=== PATIENT | male | born 1970 | race Caucasian/White ===

== ENCOUNTER 2019-09-10 14:35 | Outpatient (RCR) | payer BC, SELFPAY ==
--- NOTE | 2019-09-14 10:44 | ONC FU_ITS ---
Dr. Tracey Patient Follow-Up Note Patient: Chencho Evans Unit #: [id number]: 1970 Dicatated By: Chencho Tracey M.D.Date of Visit:Sep 10, 2019 Onc Med Follow-up/Prog Note Chief Complaint: Essential thrombocythemia. History of Present Illness: This is a 49 year-old man with essential thrombocythemia. 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 He had presented with a gradually increasing platelet count. He underwent initial evaluation with a medical case manager in [place] in January of 2019. I did not have those records available, but the evaluation included bone marrow aspiration/biopsy, and he was determined to have essential thrombocythemia. He then had a second opinion evaluation through [facility], and the diagnosis of essential thrombocythemia was confirmed. The clonal analysis at revealed that he was JAK2 negative and BCR/abl negative. However, he was found to be positive for the CALR exon 9 mutation. He was briefly on treatment with hydroxyurea. He otherwise was just followed on aspirin prophylaxis. He had subsequently relocated this area. He was seen by Vanessa Marcus at [facility] on 05/06/2019. His CBC showed normal hemoglobin at 14.6 g with hematocrit 44.6%. The red cell indices were normal. The white blood cell count was 8900. The platelet count was moderately elevated at 968,000. I had seen him initially on 05/26/2019. By NCCN criteria, he was in the very low risk category, and he was recommended to just continue with aspirin prophylaxis. He has been in good general health. He also has anxiety/depression, which has been managed pretty well with fluoxetine. He has some mild psoriasis. He has had no other ongoing medical illnesses. He does have a history of alcohol abuse, but he quit drinking in 2017. He had smoked 1 pack of cigarettes daily for approximately 10 years. He quit smoking 10 years ago. He still chews tobacco, though. He is seen for a followup visit. He has been feeling good generally. Some days he does feel tired, but he still has normal activity. His ECOG score is 0. His appetite is good. He has no fever or night sweats. He has no shortness of breath, cough, or chest pain. He has no GI or complaints. He has some aches and pains. He has no focal neurologic symptoms. He has no abnormal bruising or bleeding. Medications: Aspirin 1 Tablet (of 81 mg) Oral daily, FLUoxetine HCl 1 Capsule (of 40 mg) Oral daily Allergies: No Known Allergies. Review of Systems: Constitutional - Some days he feels tired, but he still has normal activity. His appetite is good. His weight is up a little. No fever or night sweats. ECOG score is 0, ENMT - No sinus congestion/drainage. No mouth sores. No sore throat or difficulty swallowing, Hematologic/Lymphatic - No abnormal bruising or bleeding, Respiratory - No shortness of breath. No cough. No pleuritic pain or hemoptysis, Cardiovascular - No angina pain. No palpitations, Gastrointestinal - No nausea or vomiting. No heartburn or acid reflux. No diarrhea or constipation. No blood in the stool or black stools, Genitourinary (M) - No dysuria or hematuria. No urinary frequency. No urgency or incontinence, Musculoskeletal - He has some aches and pains, Integumentary - He has psoriasis, mainly on his elbows, Neurologic - No headache or dizziness. No numbness/paresthesias or other focal neurologic symptoms, Psychiatric - No anxiety or depression. No insomnia. Vital Signs: Performed on Sep 10, 2019 14:49 Height - 71.00 in (HIGH) Weight - 230.8 lbs (HIGH) BSA - 2.24 sq.m BMI - 32.19 (HIGH) Temperature - 97.6 F (LOW) Pulse - 60 /min Respiration - 20 /min BP - 139/82 mm(hg) O2 Sat - 98 % Pain - 0 Physical Examination: Constitutional - He looks good generally, Eyes - Sclerae nonicteric. Conjunctivae clear, ENMT - No lesions noted in the oral cavity, Hematologic/Lymphatic - No cervical, clavicular, or axillary adenopathy, Respiratory - Lungs are clear with good air movement bilaterally, Cardiovascular - Heart rhythm is regular. There is no murmur, gallop, or rub noted, Abdomen - Soft. Liver and spleen are not enlarged. There is no abdominal mass or ascites noted and there is no inguinal adenopathy, Extremities - No edema. Dorsalis pedis pulses are palpable bilaterally, Neurologic - No focal neurologic deficits noted. Lab/Imaging: Test performed on Sep 09, 2019 08:00 TSH 2.19 uU/mL Glucose 130 mg/dL BUN 20.0 mg/dL Creatinine 1.0 mg/dL Cr Clearance (Est) 127.16 mL/min Sodium 140.0 mmol/L Potassium 4.1 mmol/L Chloride 107.0 mmol/L CO2 24.0 mmol/L Calcium 9.1 mg/dL Protein, Total 7.0 g/dL Albumin 4.0 g/dL Globulin 3.0 g/dL Bilirubin, Total 0.3 mg/dL Alkaline Phosphatase 70.0 IU/L AST (SGOT) 57.0 IU/L ALT (SGPT) 55.0 IU/L WBC 8.4 10^9/L RBC 4.98 10^12/L HGB 14.3 g/dL HCT 44.2 % MCV 88.7 fl MCH 28.8 pg MCHC 32.5 g/dL RDW 14.0 % Platelet Count 117 10^9/L Lymphocytes 3.0 10^9/L Monocytes 0.3 10^9/L Manual Lymphocytes 35.3 % Manual Monocytes 3.9 % Impression: 1. Patient with essential thrombocythemia, CALR exon 9 mutation positive. He has had no associated thromboembolism. He is being managed with aspirin prophylaxis. 2. He has mild fatigue. His other medical illnesses include: 3. Anxiety/depression. 4. Mild psoriasis. 5. He has a history of alcohol abuse, inactive. Thus far during follow-up there has been some increase in his platelet count, but his clinical status has remained stable with no evidence of thromboembolism or other associated symptoms. Plan: He will continue his aspirin prophylaxis. He will be scheduled for repeat CBC in 3 months and for a follow-up visit in 6 months. Signed By: Chencho Tracey M.D. <<Signature on File>>
== END 2019-10-02 23:59 | disposition home or self-care (01) ==
LOC: ONCMED 14:35
PROVIDERS: Family Provider Internal Medicine; PCP Internal Medicine Medical Oncology; Visit Provider Internal Medicine Medical Oncology
DX: D69.3 Immune thrombocytopenic purpura (principal); F41.8 Other specified anxiety disorders; L40.9 Psoriasis, unspecified; R53.83 Other fatigue; F10.21 Alcohol dependence, in remission; F17.220 Nicotine dependence, chewing tobacco, uncomplicated; Z79.82 Long term (current) use of aspirin
CPT/HCPCS: 99214

== ENCOUNTER 2020-03-09 16:27 | Outpatient (CLI) | payer BC, SELFPAY ==
--- NOTE | 2020-03-09 19:48 | ONC FU_ITS ---
Dr. Tracey Patient Follow-Up Note Patient: Chencho Evans Unit #: [id number]: 1970 Dicatated By: Chencho Tracey M.D.Date of Visit:Mar 09, 2020 Onc Med Follow-up/Prog Note Chief Complaint: Essential thrombocythemia. History of Present Illness: This is a 49 year-old man with essential thrombocythemia. 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 He had presented with a gradually increasing platelet count. He underwent initial evaluation with a personal care aide in [place] in January of 2019. I did not have those records available, but the evaluation included bone marrow aspiration/biopsy, and he was determined to have essential thrombocythemia. He then had a second opinion evaluation through [facility], and the diagnosis of essential thrombocythemia was confirmed. The clonal analysis at revealed that he was JAK2 negative and BCR/abl negative. However, he was found to be positive for the CALR exon 9 mutation. He was briefly on treatment with hydroxyurea. He otherwise was just followed on aspirin prophylaxis. He had subsequently relocated this area. He was seen by Kamila Marcus at [facility] on 05/06/2019. His CBC showed normal hemoglobin at 14.6 g with hematocrit 44.6%. The red cell indices were normal. The white blood cell count was 8900. The platelet count was moderately elevated at 968,000. I had seen him initially on 05/26/2019. By NCCN criteria, he was in the very low risk category, and he was recommended to just continue with aspirin prophylaxis. He has been in good general health. He also has anxiety/depression, which has been managed pretty well with fluoxetine. He has some mild psoriasis. He has had no other ongoing medical illnesses. He does have a history of alcohol abuse, but he quit drinking in 2017. He had smoked 1 pack of cigarettes daily for approximately 10 years. He quit smoking more than 10 years ago. He still chews tobacco, though. He is seen for a followup visit. He has been feeling good generally. His energy is fair. He has normal activity. He has good appetite. He has no fever or night sweats. He has some allergy related sinus symptoms. He has no shortness of breath, cough, or chest pain. He has no GI or complaints. He has no significant joint or bone pain. He does not complain of headache or dizziness. He has no focal neurologic symptoms. Medications: Aspirin 1 Tablet (of 81 mg) Oral daily, FLUoxetine HCl 1 Capsule (of 40 mg) Oral daily Allergies: No Known Allergies. Review of Systems: Constitutional - He states his energy is fair. He feels good and he has normal activity. His appetite is good and his weight is down a few pounds. No fever, night sweats, or hot flashes. ECOG score is 0, ENMT - He has seasonal allergies. No mouth sores. No sore throat or difficulty swallowing, Hematologic/Lymphatic - No abnormal bruising or bleeding, Respiratory - No shortness of breath. No cough. No pleuritic pain or hemoptysis, Cardiovascular - No angina pain. No palpitations, Gastrointestinal - No nausea or vomiting. No heartburn or acid reflux. No diarrhea or constipation. No blood in the stool or black stools, Genitourinary (M) - No dysuria or hematuria. No urinary frequency. No urgency or incontinence, Musculoskeletal - No joint or bone pain, Integumentary - No skin complications, Neurologic - No headache or dizziness. No numbness or tingling. No other focal neurologic symptoms, Psychiatric - No anxiety or depression. No insomnia. Vital Signs: Performed on Mar 09, 2020 16:37 Height - 71.00 in Weight - 228.6 lbs (LOW) BSA - 2.23 sq.m BMI - 31.88 (HIGH) Temperature - 97.7 F (LOW) Pulse - 68 /min Respiration - 18 /min BP - 148/83 mm(hg) (HIGH) O2 Sat - 96 % Pain - 0 Physical Examination: Constitutional - He looks good generally, Eyes - Sclerae nonicteric. Conjunctivae clear, ENMT - No lesions noted in the oral cavity, Hematologic/Lymphatic - No cervical, clavicular, or axillary adenopathy, Respiratory - Lungs are clear with good air movement bilaterally, Cardiovascular - Heart rhythm is regular. There is no murmur, gallop, or rub noted, Abdomen - Soft. Liver and spleen are not enlarged. There is no abdominal mass or ascites noted and there is no inguinal adenopathy, Extremities - No edema, Neurologic - No focal neurologic deficits noted. Lab/Imaging: Test performed on Feb 04, 2020 12:34 Glucose 112.0 mg/dL BUN 16.0 mg/dL Creatinine 1.0 mg/dL Cr Clearance (Est) 132.32 mL/min Sodium 138.0 mmol/L Potassium 4.5 mmol/L Chloride 105.0 mmol/L CO2 28.0 mmol/L Calcium 9.0 mg/dL Protein, Total 6.9 g/dL Albumin 3.9 g/dL Globulin 3.0 g/dL Bilirubin, Total 0.3 mg/dL Alkaline Phosphatase 61.0 IU/L AST (SGOT) 45.0 IU/L ALT (SGPT) 59.0 IU/L WBC 7.8 10^9/L RBC 4.99 10^12/L HGB 13.8 g/dL HCT 44.7 % MCV 89.4 fl MCH 27.6 pg MCHC 30.9 g/dL RDW 14.6 % Platelet Count 1130.0 10^9/L Neutrophils (Gran) 4.7 10^9/L Lymphocytes 2.8 10^9/L Monocytes 0.2 10^9/L Manual Lymphocytes 36.1 % Manual Monocytes 3.1 % Impression: 1. Patient with essential thrombocythemia, CALR exon 9 mutation positive. He has had no associated thromboembolism. He is being managed with aspirin prophylaxis. 2. He has mild fatigue. His other medical illnesses include: 3. Anxiety/depression. 4. Mild psoriasis. 5. He has a history of alcohol abuse, inactive. Thus far during follow-up there has been a gradual further increase in his platelet count, but his clinical status has remained stable with no evidence of thromboembolism or other associated symptoms. Plan: He will continue on observation/aspirin prophylaxis. He will be scheduled for a follow-up visit in 6 months. Signed By: Chencho Tracey M.D. <<Signature on File>>
== END 2020-03-09 16:28 | disposition home or self-care (01) ==
LOC: ONCMED 16:30
PROVIDERS: PCP Internal Medicine; Visit Provider Internal Medicine Medical Oncology
DX: D47.3 Essential (hemorrhagic) thrombocythemia (principal); R53.83 Other fatigue; F41.8 Other specified anxiety disorders; F10.11 Alcohol abuse, in remission; L40.9 Psoriasis, unspecified
CPT/HCPCS: G0463

== ENCOUNTER → 2020-08-31 14:42 | Outpatient (BNVA) | payer BC, SELFPAY | PROVIDERS: PCP Internal Medicine; Visit Provider Nurse Practitioner Family | DX: Z20.828 Contact with and (suspected) exposure to other viral communicable diseases (principal) | CPT/HCPCS: 87635 ==

== ENCOUNTER 2020-09-14 14:31 | Outpatient (CLI) | payer BC, SELFPAY ==
--- NOTE | 2020-09-18 08:20 | ONC FU_ITS ---
Dr. Tracey Patient Follow-Up Note Patient: Chencho Evans Unit #: [id number]: 1970 Dicatated By: Chencho Tracey M.D.Date of Visit:Sep 14, 2020 Onc Med Follow-up/Prog Note Chief Complaint: Essential thrombocythemia. History of Present Illness: This is a 50 year-old man with essential thrombocythemia. 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 He had presented with a gradually increasing platelet count. He underwent initial evaluation with a resaw operator in [place] in January of 2019. I did not have those records available, but the evaluation included bone marrow aspiration/biopsy, and he was determined to have essential thrombocythemia. He then had a second opinion evaluation through [facility], and the diagnosis of essential thrombocythemia was confirmed. The clonal analysis at revealed that he was JAK2 negative and BCR/abl negative. However, he was found to be positive for the CALR exon 9 mutation. He was briefly on treatment with hydroxyurea. He otherwise was just followed on aspirin prophylaxis. He had subsequently relocated this area. He was seen by Kamila Marcus at [facility] on 05/06/2019. His CBC showed normal hemoglobin at 14.6 g with hematocrit 44.6%. The red cell indices were normal. The white blood cell count was 8900. The platelet count was moderately elevated at 968,000. I had seen him initially on 05/26/2019. By NCCN criteria, he was in the very low risk category, and he was recommended to just continue with aspirin prophylaxis. He has been in good general health. He has anxiety/depression, which has been managed pretty well with fluoxetine. He has some mild psoriasis. He has had no other ongoing medical illnesses. He does have a history of alcohol abuse, but he quit drinking in 2017. He had smoked 1 pack of cigarettes daily for approximately 10 years. He quit smoking more than 10 years ago. He still chews tobacco, though. He is seen for a followup visit. He has been feeling pretty good generally. He was diagnosed with COVID-19 virus infection on 01 September. He had only minor symptoms with it, and he has recovered. Other than being fatigued with the COVID-19 illness he has had good energy and activity tolerance. His ECOG score is 0. Appetite also has decreased. He has not had fever. He has had a little bit of sweating. His cough is better now. He does not complain of shortness of breath or chest pain. He has had a little nausea. He has no other GI or complaints. He has no significant joint or bone pain. He does not complain of headache or dizziness. He has no focal neurologic symptoms. He has not had any excessive bruising on the aspirin. Medications: Aspirin 1 Tablet (of 81 mg) Oral daily, FLUoxetine HCl 1 Capsule (of 40 mg) Oral daily Allergies: No Known Allergies. Vital Signs: Performed on Sep 14, 2020 14:47 Height - 71.00 in Weight - 229.8 lbs (HIGH) BSA - 2.24 sq.m BMI - 32.05 (HIGH) Temperature - 97.9 F (LOW) Pulse - 63 /min Respiration - 16 /min BP - 144/89 mm(hg) (HIGH) O2 Sat - 97 % Pain - 0 Physical Examination: Constitutional - He looks good generally, Eyes - Sclerae nonicteric. Conjunctivae clear, ENMT - No lesions noted in the oral cavity, Hematologic/Lymphatic - No cervical, clavicular, or axillary adenopathy, Respiratory - Lungs are clear with good air movement bilaterally, Cardiovascular - Heart rhythm is regular. There is no murmur, gallop, or rub noted, Abdomen - Soft. Liver and spleen are not enlarged. There is no abdominal mass or ascites noted and there is no inguinal adenopathy, Extremities - No edema, Integumentary - There are patches of psoriasis on both arms, Neurologic - No focal neurologic deficits noted. Lab/Imaging: Test performed on Sep 13, 2020 03:58 Glucose 109.0 mg/dL LDH, Total 234 IU/L BUN 19.0 mg/dL Creatinine 1.0 mg/dL Cr Clearance (Est) 130.3000 mL/min Sodium 140.0 mmol/L Potassium 4.5 mmol/L Chloride 105.0 mmol/L CO2 30.0 mmol/L Calcium 9.1 mg/dL Protein, Total 7.2 g/dL Albumin 4.1 g/dL Globulin 3.1 g/dL Bilirubin, Total 0.4 mg/dL Alkaline Phosphatase 66.0 IU/L AST (SGOT) 35.0 IU/L ALT (SGPT) 64.0 IU/L Hemoglobin A1C 5.5 % WBC 8.3 10^9/L RBC 4.87 10^12/L HGB 14.1 g/dL HCT 43.6 % MCV 89.5 fl MCH 29.1 pg MCHC 32.5 g/dL RDW 15.1 % Platelet Count 782.0 10^9/L Neutrophils (Gran) 4.8 10^9/L Lymphocytes 2.8 10^9/L Monocytes 0.5 10^9/L Manual Lymphocytes 33.5 % Manual Monocytes 5.8 % Historic Problem List: 1. Essential thrombocythemia, CALR exon 9 mutation positive. He has had no associated thromboembolism. He is being managed with aspirin prophylaxis. 2. Anxiety/depression. 3. Mild psoriasis. 4. He has a history of alcohol abuse, inactive. 5. He was diagnosed with COVID-19 virus infection on 09/01/2020. He has had uneventful recovery. Problems Addressed with this Encounter and Plan: 1. Essential thrombocythemia, CALR exon 9 mutation positive. He has had no associated thromboembolism, and he was determined to be in a very low risk category by NCCN criteria. As such, he has been managed with aspirin prophylaxis. During follow-up there was some increase in his platelet count, but on the current study it has come back down. Overall, he has been doing well clinically, and he will just continue the aspirin prophylaxis. I will see him again in 6 months. 2. He has mild psoriasis, which has flared up a bit. He indicates he would like to see a flight operations specialist, and I will get that scheduled for him. Signed By: Chencho Tracey M.D. <<Signature on File>>
== END 2020-09-14 14:32 | disposition home or self-care (01) ==
PROVIDERS: PCP Internal Medicine; Visit Provider Internal Medicine Medical Oncology
DX: D47.3 Essential (hemorrhagic) thrombocythemia (principal); F41.9 Anxiety disorder, unspecified; F32.9 Major depressive disorder, single episode, unspecified; L40.9 Psoriasis, unspecified; F10.21 Alcohol dependence, in remission; Z86.16 Personal history of COVID-19
CPT/HCPCS: 99214

== ENCOUNTER 2020-10-06 14:29 | Emergency (ER) | payer BC, SELFPAY ==
[2020-10-06 14:35] VITALS: BP 151/76; PULSE 92; RESP 24; TEMP 36.9; O2SAT 96; BMI 34.8
--- NOTE | 2020-10-06 15:16 | CT_ITS ---
WS: [id number] CTA scan of the chest with IV contrast. Additional two-dimensional coronal and sagittal reconstructio n and MIP images was performed. 10/06/2020 Clinical Data: SOB, s/p COVID, thrombocythemia Comparison: None. DLP: 1796.[address] scans at [facility] use at least one of these dose optimization techniques: automat ed exposure control; mA and/or kV adjustment per patient size (includes targeted exams where dose is matched to clinical indication); or iterative reconstruction. Findings: The central pulmonary arteries and peripheral pulmonary arteries fill normally with no evidence of in traluminal filling defects. No pulmonary embolic disease is noted. No nodules, masses or effusions are seen. The heart size is normal with no pericardial effusion. No p neumonia or pneumothorax is seen. The pulmonary arterial system and thoracic aorta demonstrate no abn ormalities or dilatations. There is no axillary or significant mediastinal adenopathy. The thyroid gl and shows normal enhancement. The trachea bifurcates into the bronchi. The upper abdomen shows no abnormalities. The visualized liver, pancreas, gallbladder, adrenal glands and superior poles of the kidneys are not remarkable. Spleen is enlarged. The bones of the thoracic and upper lumbar spine are not remarkable. CT/CT angio chest PE protcl [id number] Impression: 1. Negative for pulmonary embolic disease. 2. Negative for acute cardiopulmonary disease. 3. Splenomegaly.
--- NOTE | 2020-10-06 15:16 | ECG_ITS ---
[facility] Test Date: 2020-10-06 Pat Name: Chencho Evans Department: Room: Gender: Male Cadd Drafter: : 1970 Requested By: Carole Christopher I Order Number: [id number] Erlin MD: Esha Keene M.D. Measurements Intervals [place] Rate: 89 P: 44 MD: 159 QRS: 4 QRSD: 96 T: 48 QT: 336 QTc: 409 Interpretive Statements SINUS RHYTHM POSSIBLE ANTERIOR MYOCARDIAL INFARCTION , OF INDETERMINATE AGE [30 ms Q WAVE IN V3/V4, OR R < 0.2 mV IN V4] No previous ECG available for comparison Electronically Signed On 10-06-2020 20:19:32 MANAGER STAFFING by Esha Keene M.D. [email or web address] [place] [facility].[id number] [email or web address]
[2020-10-06 16:04] VITALS: BP 141/81; PULSE 94; RESP 18; O2SAT 96
[2020-10-06 16:11] LABS: Basophils # 0.1 10^3/uL (0.0-0.1); Basophils % 1.2 %; Eosinophils # 0.4 10^3/uL (0.0-0.8); Eosinophils % 5.1 %; Hematocrit 37.7 % (42.0-52.0); Hemoglobin 11.8 g/dL (11.7-16.6); Mean Corpuscular HGB Conc 31.3 g/dL (30.0-36.0); Mean Corpuscular Hemoglobin 29.1 pg (28.0-34.0); Mean Corpuscular Volume 93.1 fL (80-94); Mean Platelet Volume 10.8 fL (7.4-10.4); Monocytes # 0.5 10^3/uL (0.2-0.9); Monocytes % 5.8 %; Neutrophils # 5.37 10^3/uL (1.8-7.7); Neutrophils % 62.5 %; Nucleated Red Blood Cells % 0 %; Platelet Count 773 10^3/cmm (130-400); Red Blood Count 4.05 10^6/uL (4.1-5.3); Red Cell Distribution Width 14.9 % (12.1-15.1); White Blood Count 8.6 10^3/uL (4.0-10.0)
[2020-10-06 16:20] LABS: INR 0.97 (0.8-1.2)
[2020-10-06 16:27] LABS: Troponin(5th) Baseline 8 ng/L (0-15)
[2020-10-06 16:30] VITALS: BP 141/81; PULSE 93; RESP 18; O2SAT 94
[2020-10-06 16:34] LABS: Alanine Aminotransferase 230 U/L (0-41); Albumin Level 3.5 g/dL (3.5-5.2); Alkaline Phosphatase 62 IU/L (40-130); Anion Gap 13.1 (5-19); Aspartate Amino Transferase 105 U/L (0-40); Blood Urea Nitrogen 17 mg/dL (6-20); Calcium 8.6 mg/dL (8.5-10.5); Carbon Dioxide 22 mmol/L (22-29); Chloride 106 mmol/L (98-107); Globulin 2.5 g/dL (1.3-4.6); Glomerular Filtration Rate 102.3 mL/min (90-130); Glucose 197 mg/dL (65-115); NT Pro B Type Natriuretic Pept 154 pg/mL (0-125); Osmolality Calculated 291 mOsm/kg (285-295); Potassium 4.1 mmol/L (3.5-5.1); Sodium 137 mmol/L (136-145); Total Bilirubin 0.2 mg/dL (0.15-1.2)
[2020-10-06] MEDS: iohexol 350 mg/mL 100 mL Btl IV ×3 (16:43→16:44)
[2020-10-06 17:00] VITALS: BP 165/86; PULSE 100; RESP 18; O2SAT 95
--- NOTE | 2020-10-06 17:21 | W.ED.SOB ---
HPI - SOB/Dyspnea General: Chief Complaint: Shortness of Breath/Dyspnea Stated Complaint: called over/SOB, low o2 Time Seen by Provider: 10/06/20 15:05 Source: patient, family and other (his PCP, Dr. Govea) Mode of arrival: ambulatory Limitations: no limitations History of Present Illness: HPI Narrative: This is a 50-year-old male who was sent to the emergency department by his primary care provider due to shortness of breath. On 31 August 2020 the patient was diagnosed with COVID-19 and has done relatively well with it. He never needed hospital admission. However he had an acute psychotic/manic event and needed to be evaluated at the emergency department at [facility] in [place] [facility] in [place]. He has since got better and is almost back to himself, however he still complains of significant shortness of breath with activity. At his PCPs office he noticed that he was panting a little bit and his oxygen saturation was 93%, according to his PCP his baseline is around 97%. He has idiopathic thrombocythemia so he is at increased risk for DVTs and PE and since Covid is also a prothrombotic event his primary care provider was concerned about a PE and wanted him evaluated for this. He has also had about a 20 pound weight gain which his believes is from the psychiatric medications that he is on. MD elicited complaint: shortness of breath Onset (ago): week(s) (6) Context: recent illness Timing: constant Severity: moderate Exacerbating factors: exertion Relieving factors: nothing Associated symptoms: Deny abdominal pain, chest congestion, chest pain, cough, diaphoresis, dizziness, extremity pain, fever(s), hemoptysis, lightheadedness, myalgias, nausea, orthopnea, palpitations, paresthesias, polydipsia, polyuria, rash, sense of impending doom, syncope or vomiting Treatment prior to arrival: none Review of Systems General: Reports: 10 or more systems reviewed and unremarkable except in HPI and below Const: Denies: diaphoresis Eyes: Denies: change in vision or blurry vision ENMT: Denies: throat pain, enlarged tonsils, odynophagia, hoarseness, mouth pain or swelling of lips/tongue Card: Denies: chest pain, palpitations, lightheadedness, syncope or orthopnea Resp: Denies: hemoptysis or chest congestion GI: Denies: abdominal pain, nausea or vomiting : Denies: flank pain, dysuria, urinary frequency, urinary urgency or urinary hesitancy Musc: Denies: extremity pain Skin/Breast: Denies: rash, pruritus or erythema Neuro: Denies: dizziness Endo: Denies: polyuria or polydipsia Physical Exam Const: COMMON NORMALS: no acute distress, average body habitus, patient oriented x3, no limitations, healthy appearing, alert and well nourished HENMT: COMMON NORMALS: normocephalic, atraumatic and moist oral mucous membranes HEAD & SCALP: normocephalic and atraumatic Neck/C-Spine: COMMON NORMALS: no meningeal signs and no JVD Resp: COMMON NORMALS: normal respiratory effort, No retractions, No use of accessory muscles, clear to auscultation bilaterally and percussion normal AUSCULTATION: clear to auscultation bilaterally PERCUSSION: percussion normal Cardio: COMMON NORMALS: no JVD, regular rate, regular rhythm, S1 normal heart sound present, S2 normal heart sound present, No gallops present (Cardio), No clicks present (Cardio), No murmurs present (Cardio), No rub (Cardio) and Peripheral pulses 2+ throughout RATE: regular rate RHYTHM: regular rhythm HEART SOUNDS: S1 normal heart sound present and S2 normal heart sound present PERIPHERAL PULSES: Peripheral pulses 2+ throughout GI: COMMON NORMALS: Normal to inspection, nondistended, normoactive bowel sounds present, Soft to palpation, non-tender, No hepatosplenomegaly present, no masses and no bruits PALPATION: Yes Soft to palpation and Yes No hepatosplenomegaly present Extremity: COMMON NORMALS: normal to inspection, full ROM, capillary refill normal, no calf tenderness and no pedal edema Neuro: COMMON NORMALS: patient oriented x3 SENSORIUM/ORIENTATION: Yes alert MENINGEAL SIGNS: Yes no meningeal signs Course Reevaluation(s): Reevaluation #1: Discussed his lab and imaging findings with him. Negative for pulmonary embolism, high-sensitivity troponin negative. Heart score is low so he is at low risk for major adverse cardiac event in the next 6 weeks. 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 Explained that he needs to take it easy and not exert himself and to follow-up with his primary care provider. Patient and his voiced understanding and they are in agreement with the plan Time: 17:21 Vital Signs: Vital signs: Vital Signs Temperature 98.5 F 10/06/20 14:35 Pulse Rate 112 H 10/06/20 17:32 Respiratory Rate 18 10/06/20 17:32 Blood Pressure 165/86 10/06/20 17:32 Pulse Oximetry 97 10/06/20 17:32 MDM - SOB/Dyspnea MDM Narrative: Medical decision making narrative: Patient who was brought to the emergency department for evaluation for possible PE. He has thrombocythemia and recently had COVID-19 has been short of breath for about 6 weeks. 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 He is discharged home with no new orders. Medical Records: Attestation: I reviewed the patient's medical records. Lab Data: Attestation: I reviewed the patient's lab results. Labs: Lab Results 10/06/20 10/06/20 10/06/20 Range/Units 15:56 15:56 15:56 WBC 8.6 (4.0-10.0) 10^3/ uL RBC 4.05 L (4.1-5.3) 10^6/u L Hgb 11.8 (11.7-16.6) g/dL Hct 37.7 L (42.0-52.0) % MCV 93.1 (80-94) fL MCH 29.1 (28.0-34.0) pg MCHC 31.3 (30.0-36.0) g/dL RDW 14.9 (12.1-15.1) % Plt Count 773 H (130-400) 10^3/c mm MPV 10.8 H (7.4-10.4) fL Neut % (Auto) 62.5 % Lymph % (Auto) 23.0 % [place] % (Auto) 5.8 % Eos % (Auto) 5.1 % Baso % (Auto) 1.2 % Neut # (Auto) 5.37 (1.8-7.7) 10^3/u L Lymph # (Auto) 2.0 (0.8-4.8) 10^3/u L [place] # (Auto) 0.5 (0.2-0.9) 10^3/u L Eos # (Auto) 0.4 (0.0-0.8) 10^3/u L Baso # (Auto) 0.1 (0.0-0.1) 10^3/u L Nucleated RBC % (a uto) 0 % Nucleated RBCs # 0.0 /100WBC PT 13.10 (12.1-14.9) SECO NDS INR 0.97 (0.8-1.2) Sodium 137 (136-145) mmol/L Potassium 4.1 (3.5-5.1) mmol/L Chloride 106 (98-107) mmol/L Carbon Dioxide 22 (22-29) mmol/L Anion Gap 13.1 (5-19) BUN 17 (6-20) mg/dL Creatinine 0.8 (0.7-1.2) mg/dL GFR Calculation 102.3 (90-130) mL/min Glucose 197 H (65-115) mg/dL Calculated Osmolal ity 291 (285-295) mOsm/k g Calcium 8.6 (8.5-10.5) mg/dL Total Bilirubin 0.2 (0.15-1.2) mg/dL AST 105 H (0-40) U/L ALT 230 H (0-41) U/L Alkaline Phosphata se 62 (40-130) IU/L Troponin T Baselin e (0-15) ng/L NT-Pro-B Natriuret Pep 154 H (0-125) pg/mL Total Protein 6.0 L (6.6-8.7) g/dL Albumin 3.5 (3.5-5.2) g/dL Globulin 2.5 (1.3-4.6) g/dL 10/06/20 Range/Units 15:56 WBC (4.0-10.0) 10^3/ uL RBC (4.1-5.3) 10^6/u L Hgb (11.7-16.6) g/dL Hct (42.0-52.0) % MCV (80-94) fL MCH (28.0-34.0) pg MCHC (30.0-36.0) g/dL RDW (12.1-15.1) % Plt Count (130-400) 10^3/c mm MPV (7.4-10.4) fL Neut % (Auto) % Lymph % (Auto) % [place] % (Auto) % Eos % (Auto) % Baso % (Auto) % Neut # (Auto) (1.8-7.7) 10^3/u L Lymph # (Auto) (0.8-4.8) 10^3/u L [place] # (Auto) (0.2-0.9) 10^3/u L Eos # (Auto) (0.0-0.8) 10^3/u L Baso # (Auto) (0.0-0.1) 10^3/u L Nucleated RBC % (a uto) % Nucleated RBCs # /100WBC PT (12.1-14.9) SECO NDS INR (0.8-1.2) Sodium (136-145) mmol/L Potassium (3.5-5.1) mmol/L Chloride (98-107) mmol/L Carbon Dioxide (22-29) mmol/L Anion Gap (5-19) BUN (6-20) mg/dL Creatinine (0.7-1.2) mg/dL GFR Calculation (90-130) mL/min Glucose (65-115) mg/dL Calculated Osmolal ity (285-295) mOsm/k g Calcium (8.5-10.5) mg/dL Total Bilirubin (0.15-1.2) mg/dL AST (0-40) U/L ALT (0-41) U/L Alkaline Phosphata se (40-130) IU/L Troponin T Baselin e 8 (0-15) ng/L NT-Pro-B Natriuret Pep (0-125) pg/mL Total Protein (6.6-8.7) g/dL Albumin (3.5-5.2) g/dL Globulin (1.3-4.6) g/dL Imaging Data^: CTA Chest: Attestation: I personally reviewed and interpreted this imaging study as follows: Radiologist's impression: [address] [address] [address] Scan Report Signed Patient: Chencho Evans #: [id number] : 1970Acct#:[id number] Age/Sex: 50 / MADM Date: 10/06/20 Loc: ERRoom/Bed: Attending Dr: Ordering Provider/Ordering MD: Carole Christopher MD, [facility] Date of Service: 10/06/20 Procedure(s): CT angio chest PE protcl [id number] Accession Number(s): [id number] Report Number: [id number] WS: [id number] CTA scan of the chest with IV contrast. Additional two-dimensional coronal and sagittal reconstruction and MIP images was performed. 10/06/2020 Clinical Data: SOB, s/p COVID, thrombocythemia Comparison: None. DLP: 1796.[address] scans at [facility] use at least one of these dose optimization techniques: automated exposure control; mA and/or kV adjustment per patient size (includes targeted exams where dose is matched to clinical indication); or iterative reconstruction. Findings: The central pulmonary arteries and peripheral pulmonary arteries fill normally with no evidence of intraluminal filling defects. No pulmonary embolic disease is noted. No nodules, masses or effusions are seen. The heart size is normal with no pericardial effusion. No pneumonia or pneumothorax is seen. The pulmonary arterial system and thoracic aorta demonstrate no abnormalities or dilatations. There is no axillary or significant mediastinal adenopathy. The thyroid gland shows normal enhancement. The trachea bifurcates into the bronchi. The upper abdomen shows no abnormalities. The visualized liver, pancreas, gallbladder, adrenal glands and superior poles of the kidneys are not remarkable. Spleen is enlarged. The bones of the thoracic and upper lumbar spine are not remarkable. CT/CT angio chest PE protcl [id number] Impression: 1. Negative for pulmonary embolic disease. 2. Negative for acute cardiopulmonary disease. 3. Splenomegaly. Dictated By:Kamila Esteban MD Signed By:Kamila Esteban MDSigned Date/Time:10/06/201650 DD/ 44 EKG Data^: EKG 1: Attestation: I personally reviewed and interpreted this EKG as follows: EKG Interpretation Date: 10/06/20 EKG interpretation time: 15:21 Prior EKG tracings: not available for review Interpretation: Normal sinus rhythm. Heart rate 89 bpm. Normal axis. No ST changes. Discharge Plan Discharge Patient Disposition: Home Clinical Impression: Sequelae of other specified infectious and parasitic diseases Condition: Stable Prescriptions: Continued multivitamin Tablet 1 tab PO DAILY@0900 RF: 0 olanzapine 10 mg tablet 10 mg PO DAILY@2100 RF: 0 aspirin 81 mg Tablet,Delayed Release (Dr/Ec) 81 mg PO DAILY@0900 RF: 0 Ativan 2 mg Tablet 2 mg PO BID@0900,2100 PRN (Reason: Anxiety) RF: 0 divalproex 500 mg tablet extended release 24 hr See Rx Instructions .ROUTE .COMPLEX RF: 0 Vitamin D3 100 mcg (4,000 unit) Capsule 100 mcg PO DAILY@0900 RF: 0 Discharge Orders: Discharge ED (Routine); Ordered 10/06/20 Ordered By: Carole Christopher Referrals: Katherine Wilson MD [Primary Care Provider] - 1-3 days Discharge Diet: Usual diet Discharge Activity: Resume usual activity Patient Instructions: Viral Syndrome - Adult Activity Restrictions/Additional Instructions: Return for any new or worsening symptoms. I believe what is going on with you is what we are beginning to understand as long Covid syndrome. I would like you to take it easy and gradually increase your activity levels until you are able to return to your prior levels of activity. Rest as much as possible, drink plenty of fluids to keep well-hydrated. Take vitamins including vitamin D and zinc to optimize your blood levels of these. Follow-up with your primary care provider within 3 days. Coding Level of Care Code ED Pulp Drier Firer for Paramjit Vega
[2020-10-06 17:32] VITALS: BP 165/86; PULSE 112; RESP 18; O2SAT 97
== END 2020-10-06 17:33 | disposition home or self-care (01) ==
PROVIDERS: Emergency Provider Family Medicine; PCP Internal Medicine
DX: B94.8 Sequelae of other specified infectious and parasitic diseases (principal); Z79.82 Long term (current) use of aspirin; Z86.16 Personal history of COVID-19
CPT/HCPCS: 12345; 71275; 80053; 83880; 84484; 85025; 85610; 93005; 99283; Q9967

== ENCOUNTER 2021-04-12 08:28 | Outpatient (CLI) | payer BC, SELFPAY ==
--- NOTE | 2021-04-12 12:15 | ONC FU_ITS ---
Dr. Tracey Patient Follow-Up Note Patient: Chencho Evans Unit #: [id number]: 1970 Dicatated By: Chencho Tracey M.D.Date of Visit:Apr 12, 2021 Onc Med Follow-up/Prog Note Chief Complaint: Essential thrombocythemia. History of Present Illness: This is a 50 year-old man with essential thrombocythemia. 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 He had presented with a gradually increasing platelet count. He underwent initial evaluation with a corporate physical security supervisor in [place] in January of 2019. I did not have those records available, but the evaluation included bone marrow aspiration/biopsy, and he was determined to have essential thrombocythemia. He then had a second opinion evaluation through [facility], and the diagnosis of essential thrombocythemia was confirmed. The clonal analysis at revealed that he was JAK2 negative and BCR/abl negative. However, he was found to be positive for the CALR exon 9 mutation. He was briefly on treatment with hydroxyurea. He otherwise was just followed on aspirin prophylaxis. He had subsequently relocated this area. He was seen by Kamila Marcus at [facility] on 05/06/2019. His CBC showed normal hemoglobin at 14.6 g with hematocrit 44.6%. The red cell indices were normal. The white blood cell count was 8900. The platelet count was moderately elevated at 968,000. I had seen him initially on 05/26/2019. By NCCN criteria, he was in the very low risk category, and he was recommended to just continue with aspirin prophylaxis. He has been in good general health. He has anxiety/depression. He has some mild psoriasis. He has had no other ongoing medical illnesses. He does have a history of alcohol abuse, but he quit drinking in 2016. He had smoked 1 pack of cigarettes daily for approximately 10 years. He quit smoking more than 10 years ago. He still chews tobacco, though. He is seen for a scheduled visit. At his follow-up visit in September he reported having been diagnosed with COVID-19 virus infection in August. At that point he appeared to be recovering pretty well, but subsequent to that visit he became manic and he required adjustments in his medications. He has since then been doing better on combination therapy with duloxetine and Depakote. His energy is better now. He has normal activity. ECOG score is 0. His appetite is good. He has no fever or night sweats. He has not had sore mouth or throat. He has a little bit of cough in the mornings. He does not complain of shortness of breath or chest pain. He has no GI or complaints. He has no significant joint or bone pain. He does not complain of headache or dizziness. He has no numbness/paresthesia or other focal neurologic symptoms. He has not had any abnormal bruising or bleeding. Medications: Aspirin 1 Tablet (of 81 mg) Oral daily, Divalproex Sodium ER 2 (500 mg) Tablet SR 24 HR Oral daily, DULoxetine HCl (60 mg) Capsule Delayed Release Particles Oral daily Allergies: No Known Allergies. Vital Signs: Performed on Apr 12, 2021 08:40 Height - 71.00 in Weight - 222.2 lbs (LOW) BSA - 2.21 sq.m BMI - 30.99 (HIGH) Temperature - 97.2 F (LOW) Pulse - 73 /min Respiration - 18 /min BP - 128/80 mm(hg) O2 Sat - 98 % Pain - 0 Fatigue - 0 Physical Examination: Constitutional - He looks good generally, Eyes - Sclerae nonicteric. Conjunctivae clear, ENMT - No lesions noted in the oral cavity, Hematologic/Lymphatic - No cervical, clavicular, or axillary adenopathy, Respiratory - Lungs are clear with good air movement bilaterally, Cardiovascular - Heart rhythm is regular. There is no murmur, gallop, or rub noted, Abdomen - Soft. Liver and spleen are not enlarged. There is no abdominal mass or ascites noted and there is no inguinal adenopathy, Extremities - No edema, Integumentary - There are patches of psoriasis on both elbows, Neurologic - No focal neurologic deficits noted. Lab/Imaging: Test performed on Mar 31, 2021 14:50 LDH, Total 227 IU/L Test performed on Mar 30, 2021 09:34 Glucose 91 mg/dL BUN 22.0 mg/dL Creatinine 1.1 mg/dL Cr Clearance (Est) 118.45 mL/min BUN/Creatinine Ratio 20.00 Absolute Value Sodium 140 mmol/L Potassium 4.2 mmol/L Chloride 105.0 mmol/L CO2 26.0 mmol/L Calcium 9.4 mg/dL Protein, Total 7.1 g/dL Albumin 4.2 g/dL Globulin 2.9 g/dL A/G Ratio 1.4 Absolute Value Bilirubin, Total 0.5 mg/dL Alkaline Phosphatase 51 IU/L AST (SGOT) 62.0 IU/L ALT (SGPT) 39.0 IU/L WBC 9.5 10^9/L RBC 4.47 10^12/L HGB 13.9 g/dL HCT 41.4 % MCV 92.7 fl MCH 31.1 pg MCHC 33.6 g/dL RDW 15.2 % Platelet Count 1146.6 10^9/L Neutrophils (Gran) 5.2 10^9/L Lymphocytes 3.5 10^9/L Monocytes 0.4 10^9/L Manual Lymphocytes 37.3 % Manual Monocytes 4.0 % Problem List: 1. Essential thrombocythemia, CALR exon 9 mutation positive. He has had no associated thromboembolism. He is being managed with aspirin prophylaxis. 2. Anxiety/depression. 3. Mild psoriasis. 4. He has a history of alcohol abuse, inactive. 5. He was diagnosed with COVID-19 virus infection on 09/01/2020. Problems Addressed with this Encounter and Plan: Patient with essential thrombocythemia, CALR exon 9 mutation positive. He had no associated thromboembolism, and he was determined to be in a very low risk category by NCCN criteria. As such, he has been managed with aspirin prophylaxis. During follow-up there was some fluctuations in his platelet counts, but overall he has been doing well clinically, and he will just continue the aspirin prophylaxis. I will see him again in 6 months. Signed By: Chencho Tracey M.D. <<Signature on File>>
== END 2021-04-12 08:29 | disposition home or self-care (01) ==
LOC: ONCMED 08:31
PROVIDERS: PCP Internal Medicine; Visit Provider Internal Medicine Medical Oncology
DX: D47.3 Essential (hemorrhagic) thrombocythemia (principal); Z79.82 Long term (current) use of aspirin; F41.9 Anxiety disorder, unspecified; F32.9 Major depressive disorder, single episode, unspecified; L40.9 Psoriasis, unspecified; F10.21 Alcohol dependence, in remission; Z86.16 Personal history of COVID-19; Z79.899 Other long term (current) drug therapy
CPT/HCPCS: 99214

== ENCOUNTER 2021-10-16 13:40 | Outpatient (CLI) | payer BC, SELFPAY ==
--- NOTE | 2021-10-18 06:50 | ONC FU_ITS ---
Dr. Tracey Patient Follow-Up Note Patient: Chencho Evans Unit #: [id number]: 1970 Dicatated By: Chencho Tracey M.D.Date of Visit:Oct 16, 2021 Onc Med Follow-up/Prog Note Chief Complaint: Essential thrombocythemia. History of Present Illness: This is a 51 year-old man with essential thrombocythemia. 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 He had presented with a gradually increasing platelet count. He underwent initial evaluation with a filler blender in [place] in January of 2019. I did not have those records available, but the evaluation included bone marrow aspiration/biopsy, and he was determined to have essential thrombocythemia. He then had a second opinion evaluation through [facility], and the diagnosis of essential thrombocythemia was confirmed. The clonal analysis at revealed that he was JAK2 negative and BCR/abl negative. However, he was found to be positive for the CALR exon 9 mutation. He was briefly on treatment with hydroxyurea. He otherwise was just followed on aspirin prophylaxis. He had subsequently relocated this area. He was seen by Kamila Marcus at [facility] [address] on 05/06/2019. His CBC showed normal hemoglobin at 14.6 g with hematocrit 44.6%. The red cell indices were normal. The white blood cell count was 8900. The platelet count was moderately elevated at 968,000. I had seen him initially on 05/26/2019. By NCCN criteria, he was in the very low risk category, and he was recommended to just continue with aspirin prophylaxis. He has been in good general health. He has some mild psoriasis, and he has anxiety/depression. He was diagnosed with COVID-19 virus infection in August 2020. Subsequent to that illness he became manic, but he was then doing better with his medication changed to combination therapy with duloxetine and Depakote. He has additional history of alcohol abuse, but he quit drinking in 2017. He had smoked 1 pack of cigarettes daily for approximately 10 years. He quit smoking more than 10 years ago. He still chews tobacco, though. He is seen for a scheduled visit. He has been feeling good generally. He has good energy and activity tolerance. ECOG score is 0. His appetite is good. He has no fever or night sweats. He has not had sore mouth or throat. He does not complain of cough, and he has not been having shortness of breath or chest pain. He occasionally has nervous stomach . He has no complaints with bowel or bladder function. He has no significant joint or bone pain. He does not complain of headache or dizziness, and he has no focal neurologic symptoms. Medications: Aspirin 1 Tablet (of 81 mg) Oral daily, Divalproex Sodium ER 2 (500 mg) Tablet SR 24 HR Oral daily, PROzac 1 Tablet (of 40 mg) Capsule Oral daily Allergies: No Known Allergies. Vital Signs: Performed on Oct 16, 2021 15:16 Height - 71.00 in Weight - 228.2 lbs (HIGH) BSA - 2.23 sq.m BMI - 31.83 (HIGH) Temperature - 97.8 F (LOW) Pulse - 67 /min Respiration - 18 /min BP - 159/81 mm(hg) (HIGH) O2 Sat - 98 % Pain - 0 Fatigue - 3 Physical Examination: Constitutional - He looks good generally, Eyes - Sclerae nonicteric. Conjunctivae clear, ENMT - No lesions noted in the oral cavity, Hematologic/Lymphatic - No cervical, clavicular, or axillary adenopathy, Respiratory - Lungs are clear with good air movement bilaterally, Cardiovascular - Heart rhythm is regular. There is no murmur, gallop, or rub noted, Abdomen - Soft. Liver and spleen are not enlarged. There is no abdominal mass or ascites noted and there is no inguinal adenopathy, Extremities - No edema, Neurologic - No focal neurologic deficits noted. Lab/Imaging: His laboratory studies from 10/12/2021 included CBC showing hemoglobin 14.0 g, white blood cell count 8500, and platelet count 1,056,000. Comprehensive metabolic profile showed stable renal function with BUN 17 and creatinine 1.1 mg/dL. Bilirubin and liver enzymes were normal. LDH was slightly elevated at 284/250 U/L. Problem List: 1. Essential thrombocythemia, CALR exon 9 mutation positive. He has had no associated thromboembolism. He is being managed with aspirin prophylaxis. 2. Anxiety/depression. 3. Mild psoriasis. 4. He has a history of alcohol abuse, inactive. 5. He was diagnosed with COVID-19 virus infection on 09/01/2020. Problems Addressed with this Encounter and Plan: Patient with essential thrombocythemia, CALR exon 9 mutation positive. He has had no associated thromboembolism, and he was determined to be in a very low risk category by NCCN criteria. As such, he has been managed with aspirin prophylaxis. During follow-up there has been some fluctuations in his platelet counts, but overall he has been doing well clinically. He continues on aspirin prophylaxis. He will be scheduled for a follow-up visit in 1 year. Signed By: Chencho Tracey M.D. <<Signature on File>>
== END 2021-10-16 13:41 | disposition home or self-care (01) ==
LOC: ONCMED 13:44
PROVIDERS: PCP Internal Medicine; Visit Provider Internal Medicine Medical Oncology
DX: D47.3 Essential (hemorrhagic) thrombocythemia (principal); F41.9 Anxiety disorder, unspecified; F32.A Depression, unspecified; Z79.899 Other long term (current) drug therapy
CPT/HCPCS: G0463

== ENCOUNTER 2022-11-05 12:33 | Inpatient (IN) | payer BC, SELFPAY ==
[2022-11-05 12:35] VITALS: BP 133/79; PULSE 57; RESP 16; TEMP 36.6; O2SAT 96; BMI 31.4
--- NOTE | 2022-11-05 12:41 | ED.C_ITS ---
Documented by User: JEFERSON Reyes 11/05/22 14:39 HPI - Psych General: Chief Complaint: Psychiatric Symptoms Stated Complaint: evaluation Time Seen by Provider: 11/05/22 12:39 Source: patient Mode of arrival: ambulatory Limitations: no limitations History of Present Illness: Patient is a nice 52-year-old male who presents to ED today from the crisis stabilization center for hospitalization to [facility]. Apparently they have already discussed case with Dr. Preston who has accepted patient-he was sent to the ED for medical clearance. Patient states he has a history of bipolar. He states over the past several days he has had symptoms consistent with izzy including racing thoughts, decreased sleep, intrusive thoughts, and elevated mood. Patient is not homicidal or suicidal. MD complaint: other (bipolar/possibly manic) Onset (ago): day(s) History of same: Yes Relieving factors: none Exacerbating factors: none Associated psychiatric symptoms: racing thoughts Associated symptoms: Deny auditory hallucinations, visual hallucinations, depression, homicidal ideation or suicidal ideation Treatments prior to arrival: none Review of Systems Const: Denies: fever(s) or chills Card: Denies: chest pain, palpitations, lightheadedness or syncope Resp: Denies: dyspnea GI: Denies: abdominal pain, nausea, vomiting or diarrhea Skin/Breast: Denies: rash Neuro: Denies: headache(s) Psych: Reports: anxiety, sleeping less, irritability and difficulty concentrating; Denies: depression, visual hallucinations, auditory hallucinations, suicidal ideation or homicidal ideation [facility] ED PFSH: Medical History Anxiety Thrombocythemia Surgical History No pertinent past surgical history Social History Smoking and tobacco status: never smoked Physical Exam Const: COMMON NORMALS: no acute distress, patient oriented x3, alert and well nourished GENERAL APPEARANCE: cooperative and well kempt Resp: COMMON NORMALS: normal respiratory effort and clear to auscultation bilaterally AUSCULTATION: clear to auscultation bilaterally Cardio: COMMON NORMALS: regular rate and regular rhythm RATE: regular rate RHYTHM: regular rhythm Neuro: GABRIEL COMA SCALE: document GCS findings [place] coma scale eye opening: Spontaneous Gabriel coma scale verbal response: Orientated [place] coma scale motor response: Obey commands Gabriel coma scale total score: 15 COMMON NORMALS: patient oriented x3 SENSORIUM/ORIENTATION: Yes alert Psych: COMMON NORMALS: mental status grossly normal, Normal thought process present, cooperative, normal affect, speech normal, activity/motor behavior normal, denies hallucinations, denies homicidal ideation and denies suicidal ideation APPEARANCE: Yes grossly normal and Yes well kempt ATTITUDE: Yes calm ACTIVITY/MOTOR BEHAVIOR: Yes appropriate eye contact and No psychomotor agitation SPEECH: Yes normal speech MOOD & AFFECT: Yes euthymic mood THOUGHT PROCESS: Normal thought process present THOUGHT CONTENT: Yes Normal thought content present ATTENTION/CONCENTRATION: Yes attention grossly intact and Yes concentration grossly intact MEMORY/COGNITION: Yes memory grossly intact and Yes cognition grossly intact INSIGHT: Good insight present (Psych) JUDGEMENT: Good judgement present (Psych) Course Consultations: Consultation #1: Dr. Preston-accepts to NPU Vital Signs: Vital signs: Vital Signs Temperature 98.1 F 11/07/22 11:06 Pulse Rate 61 11/07/22 11:06 Respiratory Rate 17 11/07/22 11:06 Blood Pressure 120/75 11/07/22 11:06 Pulse Oximetry 98 11/07/22 11:06 Oxygen Delivery Me thod 11/07/22 06:00 MDM - Psych Medical Decision Making Patient will be admitted to NPU to Dr. Preston. Lab Data 11/05/22 12:58 11/05/22 12:58 Laboratory Results WBC 8.9 10^3/uL (4.0-10.0) 11/05/22 12:58 RBC 4.36 10^6/uL (4.1-5.3) 11/05/22 12:58 Hgb 12.6 g/dL (11.7-16.6) 11/05/22 12:58 Hct 41.0 % (42.0-52.0) L 11/05/22 12:58 MCV 94.0 fl (80-94) 11/05/22 12:58 MCH 28.9 pg (28.0-34.0) 11/05/22 12:58 MCHC 30.7 g/dL (30.0-36.0) 11/05/22 12:58 RDW 16.2 % (12.1-15.1) H 11/05/22 12:58 Plt Count 720 10^3/cmm (130-400) H 11/05/22 12:58 MPV 10.5 fL (7.4-10.4) H 11/05/22 12:58 Neut % (Auto) 64.5 % 11/05/22 12:58 Lymph % (Auto) 25.1 % 11/05/22 12:58 [place] % (Auto) 4.8 % 11/05/22 12:58 Eos % (Auto) 3.9 % 11/05/22 12:58 Baso % (Auto) 1.1 % 11/05/22 12:58 Neut # (Auto) 5.76 10^3/uL (1.8-7.7) 11/05/22 12:58 Lymph # (Auto) 2.2 10^3/uL (0.8-4.8) 11/05/22 12:58 [place] # (Auto) 0.4 10^3/uL (0.2-0.9) 11/05/22 12:58 Eos # (Auto) 0.4 10^3/uL (0.0-0.8) 11/05/22 12:58 Baso # (Auto) 0.1 10^3/uL (0.0-0.1) 11/05/22 12:58 Nucleated RBC % (auto) 0 % 11/05/22 12:58 Nucleated RBCs # 0.0 /100WBC 11/05/22 12:58 Sodium 141 mmol/L (136-145) 11/05/22 12:58 Potassium 4.4 mmol/L (3.5-5.1) 11/05/22 12:58 Chloride 106 mmol/L (98-107) 11/05/22 12:58 Carbon Dioxide 27 mmol/L (22-29) 11/05/22 12:58 Anion Gap 12.4 (5-19) 11/05/22 12:58 BUN 15 mg/dL (6-20) 11/05/22 12:58 Creatinine 1.0 mg/dL (0.7-1.2) 11/05/22 12:58 GFR Calculation 78.5 mL/min (90-130) L 11/05/22 12:58 Glucose 90 mg/dL (65-115) 11/05/22 12:58 Calculated Osmolality 292 mOsm/kg (285-295) 11/05/22 12:58 Calcium 9.1 mg/dL (8.5-10.5) 11/05/22 12:58 Total Bilirubin 0.4 mg/dL (0.15-1.2) 11/05/22 12:58 AST 16 U/L (0-40) 11/05/22 12:58 ALT 21 U/L (0-41) 11/05/22 12:58 Alkaline Phosphatase 53 U/L (40-130) 11/05/22 12:58 Total Protein 6.4 g/dL (6.6-8.7) L 11/05/22 12:58 Albumin 4.2 g/dL (3.5-5.2) 11/05/22 12:58 Globulin 2.2 g/dL (1.3-4.6) 11/05/22 12:58 Salicylates 0.5 mg/dL (3-10) L 11/05/22 12:58 Urine Opiates Screen Negative ng/mL (Negative) 11/05/22 13:32 Acetaminophen < 5.0 ug/mL (10-30) L 11/05/22 12:58 Ur Barbiturates Screen Negative ng/mL (Negative) 11/05/22 13:32 Ur Phencyclidine Scrn Negative ng/mL (Negative) 11/05/22 13:32 Ur Amphetamines Screen Negative ng/mL (Negative) 11/05/22 13:32 U Benzodiazepines Scrn Positive ng/mL (Negative) H 11/05/22 13:32 [place] 0.7 mmol/L (0.6-1.2) 11/05/22 12:58 Urine Cocaine Screen Negative ng/mL (Negative) 11/05/22 13:32 U Marijuana (THC) Screen Negative ng/mL (Negative) 11/05/22 13:32 Ethyl Alcohol < 10 mg/dL (0-10) 11/05/22 12:58 Discharge Plan Discharge Patient Disposition: Admitted As Inpatient Admit Provider: Willem Preston Clinical Impression: Bipolar disorder Condition: Stable Discharge Diet: Regular Discharge Activity: Resume usual activity Coding Level of Care Code ED Lead Atg Developer for Chg Fwd Documented by User: Vinnie Kemp MD 11/18/22 13:41 HPI - Psych General: Chief Complaint: Psychiatric Symptoms Stated Complaint: evaluation Time Seen by Provider: 11/05/22 12:39 PFSH ED PFSH: Medical History Anxiety Thrombocythemia Surgical History No pertinent past surgical history Social History Smoking and tobacco status: never smoked Physical Exam Neuro: GABRIEL COMA SCALE: document GCS findings Gabriel coma scale total sco re: 15 Course Vital Signs: Vital signs: Vital Signs Temperature 98.1 F 11/07/22 11:06 Pulse Rate 61 11/07/22 11:06 Respiratory Rate 17 11/07/22 11:06 Blood Pressure 120/75 11/07/22 11:06 Pulse Oximetry 98 11/07/22 11:06 Oxygen Delivery Me thod 11/07/22 06:00 MDM - Psych Medical Decision Making Patient will be admitted to NPU to Dr. Preston. I discussed this case with JEFERSON Reyes. I have reviewed documentation, labs. Vinnie Kemp MD Emergency Medicine Lab Data 11/05/22 12:58 11/05/22 12:58 Laboratory Results WBC 8.9 10^3/uL (4.0-10.0) 11/05/22 12:58 RBC 4.36 10^6/uL (4.1-5.3) 11/05/22 12:58 Hgb 12.6 g/dL (11.7-16.6) 11/05/22 12:58 Hct 41.0 % (42.0-52.0) L 11/05/22 12:58 MCV 94.0 fl (80-94) 11/05/22 12:58 MCH 28.9 pg (28.0-34.0) 11/05/22 12:58 MCHC 30.7 g/dL (30.0-36.0) 11/05/22 12:58 RDW 16.2 % (12.1-15.1) H 11/05/22 12:58 Plt Count 720 10^3/cmm (130-400) H 11/05/22 12:58 MPV 10.5 fL (7.4-10.4) H 11/05/22 12:58 Neut % (Auto) 64.5 % 11/05/22 12:58 Lymph % (Auto) 25.1 % 11/05/22 12:58 [place] % (Auto) 4.8 % 11/05/22 12:58 Eos % (Auto) 3.9 % 11/05/22 12:58 Baso % (Auto) 1.1 % 11/05/22 12:58 Neut # (Auto) 5.76 10^3/uL (1.8-7.7) 11/05/22 12:58 Lymph # (Auto) 2.2 10^3/uL (0.8-4.8) 11/05/22 12:58 [place] # (Auto) 0.4 10^3/uL (0.2-0.9) 11/05/22 12:58 Eos # (Auto) 0.4 10^3/uL (0.0-0.8) 11/05/22 12:58 Baso # (Auto) 0.1 10^3/uL (0.0-0.1) 11/05/22 12:58 Nucleated RBC % (auto) 0 % 11/05/22 12:58 Nucleated RBCs # 0.0 /100WBC 11/05/22 12:58 Sodium 141 mmol/L (136-145) 11/05/22 12:58 Potassium 4.4 mmol/L (3.5-5.1) 11/05/22 12:58 Chloride 106 mmol/L (98-107) 11/05/22 12:58 Carbon Dioxide 27 mmol/L (22-29) 11/05/22 12:58 Anion Gap 12.4 (5-19) 11/05/22 12:58 BUN 15 mg/dL (6-20) 11/05/22 12:58 Creatinine 1.0 mg/dL (0.7-1.2) 11/05/22 12:58 GFR Calculation 78.5 mL/min (90-130) L 11/05/22 12:58 Glucose 90 mg/dL (65-115) 11/05/22 12:58 Calculated Osmolality 292 mOsm/kg (285-295) 11/05/22 12:58 Calcium 9.1 mg/dL (8.5-10.5) 11/05/22 12:58 Total Bilirubin 0.4 mg/dL (0.15-1.2) 11/05/22 12:58 AST 16 U/L (0-40) 11/05/22 12:58 ALT 21 U/L (0-41) 11/05/22 12:58 Alkaline Phosphatase 53 U/L (40-130) 11/05/22 12:58 Total Protein 6.4 g/dL (6.6-8.7) L 11/05/22 12:58 Albumin 4.2 g/dL (3.5-5.2) 11/05/22 12:58 Globulin 2.2 g/dL (1.3-4.6) 11/05/22 12:58 Salicylates 0.5 mg/dL (3-10) L 11/05/22 12:58 Urine Opiates Screen Negative ng/mL (Negative) 11/05/22 13:32 Acetaminophen < 5.0 ug/mL (10-30) L 11/05/22 12:58 Ur Barbiturates Screen Negative ng/mL (Negative) 11/05/22 13:32 Ur Phencyclidine Scrn Negative ng/mL (Negative) 11/05/22 13:32 Ur Amphetamines Screen Negative ng/mL (Negative) 11/05/22 13:32 U Benzodiazepines Scrn Positive ng/mL (Negative) H 11/05/22 13:32 [place] 0.7 mmol/L (0.6-1.2) 11/05/22 12:58 Urine Cocaine Screen Negative ng/mL (Negative) 11/05/22 13:32 U Marijuana (THC) Screen Negative ng/mL (Negative) 11/05/22 13:32 Ethyl Alcohol < 10 mg/dL (0-10) 11/05/22 12:58 Discharge Plan Discharge Patient Disposition: Admitted As Inpatient Admit Provider: Willem Preston Clinical Impression: Bipolar disorder Condition: Stable Discharge Diet: Regular Discharge Activity: Resume usual activity Coding Level of Care Code ED Lead Atg Developer for Paramjit Vega
[2022-11-05 13:05] LABS: Basophils # 0.1 10^3/uL (0.0-0.1); Basophils % 1.1 %; Eosinophils # 0.4 10^3/uL (0.0-0.8); Eosinophils % 3.9 %; Hemoglobin 12.6 g/dL (11.7-16.6); Lymphocytes # 2.2 10^3/uL (0.8-4.8); Lymphocytes % 25.1 %; Mean Corpuscular HGB Conc 30.7 g/dL (30.0-36.0); Mean Corpuscular Hemoglobin 28.9 pg (28.0-34.0); Mean Platelet Volume 10.5 fL (7.4-10.4); Monocytes # 0.4 10^3/uL (0.2-0.9); Monocytes % 4.8 %; Neutrophils # 5.76 10^3/uL (1.8-7.7); Neutrophils % 64.5 %; Nucleated Red Blood Cells % 0 %; Platelet Count 720 10^3/cmm (130-400); Red Blood Count 4.36 10^6/uL (4.1-5.3); Red Cell Distribution Width 16.2 % (12.1-15.1); White Blood Count 8.9 10^3/uL (4.0-10.0)
[2022-11-05 13:26] LABS: Alanine Aminotransferase 21 U/L (0-41); Albumin Level 4.2 g/dL (3.5-5.2); Alkaline Phosphatase 53 U/L (40-130); Anion Gap 12.4 (5-19); Aspartate Amino Transferase 16 U/L (0-40); Blood Urea Nitrogen 15 mg/dL (6-20); Calcium 9.1 mg/dL (8.5-10.5); Carbon Dioxide 27 mmol/L (22-29); Chloride 106 mmol/L (98-107); Globulin 2.2 g/dL (1.3-4.6); Glomerular Filtration Rate 78.5 mL/min (90-130); Glucose 90 mg/dL (65-115); Osmolality Calculated 292 mOsm/kg (285-295); Potassium 4.4 mmol/L (3.5-5.1); Salicylate 0.5 mg/dL (3-10); Sodium 141 mmol/L (136-145); Total Bilirubin 0.4 mg/dL (0.15-1.2); Total Protein 6.4 g/dL (6.6-8.7)
[2022-11-05 13:30] LABS: Acetaminophen < 5.0 ug/mL (10-30); Alcohol Level < 10 mg/dL (0-10)
--- NOTE | 2022-11-05 13:37 | PC.PHAR ---
unable to verify medications with pt-medications entered are meds that shows has been filled recently on ext med history and from previous entered med list-ext med history shows quetiapine 200mg bid last filled 10/18/22 [facility] states the pt had a 100mg bid filled on 10/08/22 [facility] states that rx was canceled when they got the 200mg bid-notes are made in the pharmacy comments
[2022-11-05 13:51] LABS: Lithium 0.7 mmol/L (0.6-1.2)
[2022-11-05 13:53] LABS: Amphetamines Screen Urine Negative (Negative); Barbiturates Screen Urine Negative (Negative); Benzodiazepines Screen Urine Positive (Negative); Cocaine Screen Urine Negative (Negative); Opiate Screen Urine Negative (Negative); PCP Screen Urine Negative (Negative); THC Screen Urine Negative (Negative)
[2022-11-05 14:27] VITALS: O2SAT 98
[2022-11-05 15:33] VITALS: BP 135/88; PULSE 53; RESP 17; TEMP 36.7; O2SAT 100
[2022-11-05 22:00] VITALS: BP 135/79; PULSE 60; RESP 18; TEMP 36.5; O2SAT 98
[2022-11-06] MEDS: trazodone 50 mg Tablet PO (00:51)
[2022-11-06] MEDS: hyDROXYzine 25 mg Capsule 50 MG PO (00:51)
--- NOTE | 2022-11-06 00:52 | PC.NURSE ---
pt came to nurses station asking for medication to help him sleep and ease his anxiety. trazodone and vistaril were given as ordered.
[2022-11-06 06:00] VITALS: BP 141/90; PULSE 52; RESP 16; TEMP 36.4; O2SAT 100
--- NOTE | 2022-11-06 06:19 | PC.NURSE ---
pt slept most of night, woke up during the night to ask for trazodone and vistaril. Has been sleeping. no distress noted.
--- NOTE | 2022-11-06 08:53 | P.NPUHP_ITS ---
Providers/Chief Complaint Admitting Physician: Willem Preston MD Primary Care Provider: Katherine Wilson MD Chief Complaint: evaluation HPI NPU History of Present Illness Chencho Evans is a 52 year old male who presented to the emergency department with the following report: Chief Complaint: Psychiatric Symptoms Stated Complaint: evaluation Time Seen by Provider: 11/05/22 12:39 Source: patient Mode of arrival: ambulatory Limitations: no limitations History of Present Illness: Patient is a nice 52-year-old male who presents to ED today from the crisis stabilization center for hospitalization to NPU. Apparently they have already discussed case with Dr. Preston who has accepted patient-he was sent to the ED for medical clearance. Patient states he has a history of bipolar. He states over the past several days he has had symptoms consistent with izzy including racing thoughts, decreased sleep, intrusive thoughts, and elevated mood. Patient is not homicidal or suicidal. complaint: other (bipolar/possibly manic) Onset (ago): day(s) History of same: Yes Relieving factors: none Exacerbating factors: none Associated psychiatric symptoms: racing thoughts Associated symptoms: Deny auditory hallucinations, visual hallucinations, depression, homicidal ideation or suicidal ideation Treatments prior to arrival: none To the neuropsychiatric unit for definitive treatment of these issues. He presents today reporting that he has been hospitalized 2 times in the past and has had outpatient services most recently via zoom. He reports that he got diagnosed with bipolar disorder a couple years ago having had 2 manic episodes and spring 2019 and one in summer 2021 where and he was having increased goal- directed behavior, decreased sleep, increased spending and impulsive behaviors. He presents today reporting that that is revving up again and he had no one to check his lithium level or help him figure out what to do with his medications and so he came to the hospital before things got out of control. He reports he has been on many other medications other than the ones he is on currently. He reports through his life he has been on most antidepressants. He reports that he chews about a can a day, has not drank alcohol for 5 years but used to have a significant problem with alcohol, denies marijuana or any other illicit drug use. He has never been to a rehab as had 3 DUIs the last of which was in 1996. He reports that he started having issues and being different in grade school but was not diagnosed started having difficulties with depression and anxiety in high school and in his senior year in college things started getting really problematic. He reports that he got COVID when it first came out and then he had an episode of izzy in October 2019 and another episode in December 2021 where he went for about a month in a manic state before having a significant depressive drop-off after that. He presents open to us making sure we have a trough lithium level and then making adjustments with that or other medications afterwards after a discussion of the risks, benefits and alternatives he understood and agreed to proceed as is documented in this note. Psychiatric history: As above. Substance abuse history: As above. Family history: He reports of mental health issues on his dad's side, addiction issues on his dad's side but denied any suicide attempts or completions on either side. Developmental history: He reports that he was normal at and learned to walk and talk and met his developmental milestones on time. He reports that he did not need speech therapy learning support emotional support or special education classes. He reports that his parents were together when he was born and that there are 3 other individuals that share the same to parents. His sister however of a automobile accident in 2001. He reports that he is the oldest of the 4 children. He reports his childhood was good and he denies any emotional physical or sexual abuse. He denies any traumatic events during his life. He reports that he graduated from high school and college. He reports that he is a heterosexual and his longest relationship is 19 years. He been 1 time and has 3 children boys 14 and 11 and a daughter that is 8. He has never been in the and endorses being a [employer]. His longest work history is 13 years and is currently employed. He lives in a house with his and 3 kids. Legal history: He has been in group home 1 time for about a month in 1996 after his third DUI. Medical history: He does have essential thrombocytosis. Meds NPU Home Medications Medication Instructions Recorded Confirmed Last Taken Type aspirin 81 mg tablet,delayed 81 mg PO DAILY@89910/06/20 11/05/22 11/05/22 History release multivitamin 1 tab PO DAILY@89910/06/20 11/05/22 10/05/20 History fluoxetine 40 mg capsule (Prozac) 40 mg PO DAILY 11/03/22 11/05/2211/03/23 History propranolol 40 mg tablet 40 mg PO BID 11/03/22 11/05/22 11/03/22 History clobetasol 0.05 % topical ointment 1 applic topical BID PRN unknown 11/05/22 11/05/22 Unknown History lithium carbonate 300 mg tablet 600 mg PO BID 11/05/22 11/05/22 Unknown History quetiapine 200 mg tablet 200 mg PO BID 11/05/22 11/05/22 Unknown History triamcinolone acetonide 0.1 % 1 applic topical BID PRN unknown 11/05/22 11/05/22 Unknown History topical ointment Allergies Allergy/AdvReac Type Severity Reaction Status Date / Time No Known Allergies Allergy Verified 11/03/22 15:15 PFSH NPU PFSH: Medical History Anxiety Thrombocythemia Surgical History No pertinent past surgical history Social History Smoking and tobacco status: never smoked Mental Status Exam MSE Comments: This is a overweight versus obese white male in hospital scrubs with adequate grooming and eye contact. No abnormal movements except for mild psychomotor agitation. Cooperative with exam in mild distress. Speech was slightly increased rate and normal volume. Mood described as okay, affect congruent. Thought process organized. Thought content: Patient denies suicidal or homicidal ideation, there were no delusions reported or noted, he denies any auditory or visual hallucinations. Attention and concentration are intact and memory appeared reliable but none were formally tested. He is alert and oriented x3. Insight and judgment appear fair impulse control limited. Vitals/I&O/Wt Last Vital Signs Temp 97.6 F 11/06/22 06:00 Pulse 52 L 11/06/22 06:00 Resp 16 11/06/22 06:00 BP 141/90 11/06/22 06:00 Pulse Ox 100 11/06/22 06:00 O2 Del Method 11/05/22 22:00 Weight last 48 hrs Weight 102.058 kg Data NPU 11/05/22 12:58 11/05/22 12:58 A&P Assessment and plan (1) Bipolar disorder: (2) Essential thrombocytosis: (3) Izzy: Plan This is a 52-year-old white male with a long history of mental health issues and recent diagnosis of bipolar disorder who presents reporting that he has had izzy recently which has made it harder for him to manage things who presents hoping to get a medication adjustment and identify if the lithium is at appropriate level. Involuntary Hold Information 96 Hour Hold: 96 Hour Involuntary Admission: No Attestations NPU Medical Necessity Statement*: Inpatient hospitalization is medically necessary and the clinically appropriate intervention at this time. We will monitor medication to make changes as indicated.? He will be in the hospital for over 2 midnights.? Likely length of stay 3 to 5 days. 1.? Continue current medication. Check lithium levels and consider adjustments as appropriate. 2.? Continue every 15 minute checks for safety. 3.? Encourage individual, group and milieu therapies. Coding Level of Care Code Acute Code for g Fwd Diagnoses Bipolar disorder F31.9 Essential thrombocytosis D47.3 Izzy F30.9
[2022-11-06] MEDS: nicotine 2 mg Gum BUCCAL ×3 (09:55→18:29)
[2022-11-06 14:00] VITALS: BP 159/95; PULSE 59; RESP 16; TEMP 36.6; O2SAT 100
[2022-11-06] MEDS: fluoxetine 20 mg Capsule 40 MG PO (17:11)
[2022-11-06] MEDS: aspirin 81 mg EC Tablet PO (17:11)
[2022-11-06] MEDS: lithium carbonate 300 mg Capsule 1500 MG PO (20:43)
[2022-11-06] MEDS: propranolol 40 mg Tablet PO (20:44)
[2022-11-06 21:49] VITALS: BP 165/94; PULSE 61; RESP 17; TEMP 36.7; O2SAT 97
[2022-11-07 06:00] VITALS: BP 120/75; PULSE 61; RESP 17; TEMP 36.7; O2SAT 98
[2022-11-07] MEDS: aspirin 81 mg EC Tablet PO (08:28)
[2022-11-07] MEDS: propranolol 40 mg Tablet PO (08:28)
[2022-11-07] MEDS: fluoxetine 20 mg Capsule 40 MG PO (08:28)
[2022-11-07] MEDS: nicotine 2 mg Gum BUCCAL (08:28)
--- NOTE | 2022-11-07 11:04 | W.PM.NPUDCS ---
Diagnoses at Discharge Discharge Diagnosis (1) Bipolar disorder: Status: Acute (2) Essential thrombocytosis: Status: Acute (3) Denise: Status: Acute Reason for Visit Reason for Visit: evaluation Hospital Course Hospital Course He quickly acclimated to the individual, group and milieu therapies. He presented with questionable mild denise. We checked his lithium level which was about 0.7. We increased his lithium 300 mg and monitored him for safety. He appears stable and mild improvement. He was able to contract for safety outside the hospital prior to discharge. During the hospitalization he had routine laboratory studies which were within normal limits except for few outliers. He also general medical evaluation which was also within the limits and revealed no new acute processes. Discharge summary: At the time of discharge, patient denied lethality or psychosis. Mood and anxiety were well managed. He endorsed a plan to avoid all drugs of abuse and follow-up with the aftercare recommendations of the treatment team. Patient was evaluated and deemed to be absent credible lethality, and had achieved the maximum benefit from an inpatient hospitalization, so was discharged. Involuntary Hold Information 96 Hour Hold: 96 Hour Involuntary Admission: No Mental Status Exam MSE Comments: This is a overweight versus obese white male in hospital scrubs with adequate grooming and eye contact. No abnormal movements except for mild psychomotor agitation. Cooperative with exam in mild distress. Speech was slightly increased rate and normal volume. Mood described as okay, affect congruent. Thought process organized. Thought content: Patient denies suicidal or homicidal ideation, there were no delusions reported or noted, he denies any auditory or visual hallucinations. Attention and concentration are intact and memory appeared reliable but none were formally tested. He is alert and oriented x3. Insight and judgment appear fair impulse control limited. Discharge Data Studies Completed and Pending: Laboratory Results WBC 8.9 10^3/uL (4.0- 10.0) 11/05/22 12:58 RBC 4.36 10^6/uL (4.1 -5.3) 11/05/22 12:58 Hgb 12.6 g/dL (11.7-1 6.6) 11/05/22 12:58 Hct 41.0 % (42.0-52.0 ) L 11/05/22 12:58 MCV 94.0 fl (80-94) 11/05/22 12:58 MCH 28.9 pg (28.0-34. 0) 11/05/22 12:58 MCHC 30.7 g/dL (30.0-3 6.0) 11/05/22 12:58 RDW 16.2 % (12.1-15.1 ) H 11/05/22 12:58 Plt Count 720 10^3/cmm (130 -400) H 11/05/22 12:58 MPV 10.5 fL (7.4-10.4 ) H 11/05/22 12:58 Neut % (Auto) 64.5 % 11/05/22 12:58 Lymph % (Auto) 25.1 % 11/05/22 12:58 [place] % (Auto) 4.8 % 11/05/22 12:58 Eos % (Auto) 3.9 % 11/05/22 12:58 Baso % (Auto) 1.1 % 11/05/22 12:58 Neut # (Auto) 5.76 10^3/uL (1.8 -7.7) 11/05/22 12:58 Lymph # (Auto) 2.2 10^3/uL (0.8- 4.8) 11/05/22 12:58 [place] # (Auto) 0.4 10^3/uL (0.2- 0.9) 11/05/22 12:58 Eos # (Auto) 0.4 10^3/uL (0.0- 0.8) 11/05/22 12:58 Baso # (Auto) 0.1 10^3/uL (0.0- 0.1) 11/05/22 12:58 Nucleated RBC % (a uto) 0 % 11/05/22 12:58 Nucleated RBCs # 0.0 /100WBC 11/05/22 12:58 Sodium 141 mmol/L (136-1 45) 11/05/22 12:58 Potassium 4.4 mmol/L (3.5-5 .1) 11/05/22 12:58 Chloride 106 mmol/L (98-10 7) 11/05/22 12:58 Carbon Dioxide 27 mmol/L (22-29) 11/05/22 12:58 Anion Gap 12.4 (5-19) 11/05/22 12:58 BUN 15 mg/dL (6-20) 11/05/22 12:58 Creatinine 1.0 mg/dL (0.7-1. 2) 11/05/22 12:58 GFR Calculation 78.5 mL/min (90-1 30) L 11/05/22 12:58 Glucose 90 mg/dL (65-115) 11/05/22 12:58 Calculated Osmolal ity 292 mOsm/kg (285- 295) 11/05/22 12:58 Calcium 9.1 mg/dL (8.5-10 .5) 11/05/22 12:58 Total Bilirubin 0.4 mg/dL (0.15-1 .2) 11/05/22 12:58 AST 16 U/L (0-40) 11/05/22 12:58 ALT 21 U/L (0-41) 11/05/22 12:58 Alkaline Phosphata se 53 U/L (40-130) 11/05/22 12:58 Total Protein 6.4 g/dL (6.6-8.7 ) L 11/05/22 12:58 Albumin 4.2 g/dL (3.5-5.2 ) 11/05/22 12:58 Globulin 2.2 g/dL (1.3-4.6 ) 11/05/22 12:58 Salicylates 0.5 mg/dL (3-10) L 11/05/22 12:58 Urine Opiates Scre en Negative ng/mL (N egative) 11/05/22 13:32 Acetaminophen < 5.0 ug/mL (10-3 0) L 11/05/22 12:58 Ur Barbiturates Sc reen Negative ng/mL (N egative) 11/05/22 13:32 Ur Phencyclidine S crn Negative ng/mL (N egative) 11/05/22 13:32 Ur Amphetamines Sc reen Negative ng/mL (N egative) 11/05/22 13:32 U Benzodiazepines Scrn Positive ng/mL (N egative) H 11/05/22 13:32 [place] 0.7 mmol/L (0.6-1 .2) 11/05/22 12:58 Urine Cocaine Scre en Negative ng/mL (N egative) 11/05/22 13:32 U Marijuana (THC) Screen Negative ng/mL (N egative) 11/05/22 13:32 Ethyl Alcohol < 10 mg/dL (0-10) 11/05/22 12:58 Vitals: Last Vital Signs Temp 98.1 F 11/07/22 06:00 Pulse 61 11/07/22 06:00 Resp 17 11/07/22 06:00 BP 120/75 11/07/22 06:00 Pulse Ox 98 11/07/22 06:00 O2 Del Method 11/07/22 06:00 Discharge Plan Discharge Patient Disposition: Home Condition: Stable Prescriptions: New hydroxyzine pamoate 25 mg Capsule 50 mg PO Q6H PRN (Reason: Anxiety) 30 Days Qty: 120 1RF trazodone 50 mg Tablet 50 mg PO BEDTIME PRN (Reason: Sleep) 30 Days Qty: 30 1RF lithium carbonate 300 mg Capsule 1,500 mg PO 2099 30 Days Qty: 150 1RF quetiapine 400 mg Tablet 400 mg PO 2100 30 Days Qty: 30 1RF Continued multivitamin Tablet 1 tab PO DAILY@0900 aspirin 81 mg Tablet,Delayed Release (Dr/Ec) 81 mg PO DAILY@0900 clobetasol 0.05 % ointment 1 applic topical BID PRN (Reason: unknown) Rx Instructions: Apply no more than 2 wks/mo alternating with Triamcinolone triamcinolone acetonide 0.1 % ointment 1 applic topical BID PRN (Reason: unknown) Rx Instructions: Apply to elbows no more than 2 wks/mo alternating with clobetasol Prozac 40 mg Capsule 40 mg PO DAILY 30 Days Qty: 30 1RF propranolol 40 mg Tablet 40 mg PO BID 30 Days Qty: 60 1RF Discontinued quetiapine 200 mg tablet 200 mg PO BID lithium carbonate 300 mg tablet 600 mg PO BID Discharge Orders: Discharge Order (Routine); Ordered 11/07/22 Ordered By: Willem Preston Referrals: [facility] [place] [facility] [Outside] - 11/19/22 11:30 am (Initial apt schedued for 11/19/22 @ 1130 am.) Katherine Wilson MD [Primary Care Provider] - (Your PCP's office will be calling for a follow up. ) Discharge Diet: Regular Discharge Activity: Resume usual activity Patient Instructions: Trazodone (By mouth), [place] (By mouth), Hydroxyzine (By mouth), Quetiapine (By mouth), Mood Disorders (GEN), Opioid Safety Discharge Attestations NPU Time Spent in Discharge Care*: less than 30 min Specific Discharge Activities: Specific discharge activities: educating patient, discussing with caser up/social workers/dc planners, documenting/other paperwork and evaluating patient/reviewing data Coding Level of Care Code Acute Chg FW DC note Diagnoses Bipolar disorder F31.9 Essential thrombocytosis D47.3 Denise F30.9
[2022-11-07 11:06] VITALS: BP 120/75; PULSE 61; RESP 17; TEMP 36.7; O2SAT 98
== END 2022-11-07 11:21 | disposition home or self-care (01) | DRG 885 ==
LOC: ER 14:07 → NP 16:44
PROVIDERS: Admitting Provider Psychiatry & Neurology Psychiatry; Emergency Provider Physician Assistant; PCP Internal Medicine; Visit Provider Psychiatry & Neurology Psychiatry
DX: F31.9 Bipolar disorder, unspecified (principal); Z81.8 Family history of other mental and behavioral disorders; D47.3 Essential (hemorrhagic) thrombocythemia; Z79.82 Long term (current) use of aspirin
CPT/HCPCS: 36415; 80053; 80178; 80306; 80307; 85025; 97150; 97165; 99238; 99285

== ENCOUNTER 2022-12-20 12:07 | Oncology outpatient (recurring) (ONCR) | payer BC, SELFPAY ==
[2022-12-20 13:11] LABS: Basophils # 0.1 10^3/uL (0.0-0.1); Basophils % 1.1 %; Eosinophils # 0.2 10^3/uL (0.0-0.8); Eosinophils % 2.9 %; Hematocrit 40.1 % (42.0-52.0); Hemoglobin 12.8 g/dL (11.7-16.6); Lymphocytes # 2.2 10^3/uL (0.8-4.8); Lymphocytes % 26.6 %; Mean Corpuscular HGB Conc 31.9 g/dL (30.0-36.0); Mean Corpuscular Hemoglobin 29.2 pg (28.0-34.0); Mean Corpuscular Volume 91.3 fl (80-94); Mean Platelet Volume 10.6 fL (7.4-10.4); Monocytes # 0.4 10^3/uL (0.2-0.9); Monocytes % 4.2 %; Neutrophils # 5.35 10^3/uL (1.8-7.7); Neutrophils % 64.7 %; Nucleated Red Blood Cells % 0 %; Platelet Count 853 10^3/cmm (130-400); Red Blood Count 4.39 10^6/uL (4.1-5.3); Red Cell Distribution Width 15.6 % (12.1-15.1); White Blood Count 8.3 10^3/uL (4.0-10.0)
[2022-12-20 13:49] LABS: Alanine Aminotransferase 18 U/L (0-41); Albumin Level 4.3 g/dL (3.5-5.2); Alkaline Phosphatase 53 U/L (40-130); Anion Gap 11.3 (5-19); Aspartate Amino Transferase 15 U/L (0-40); Blood Urea Nitrogen 16 mg/dL (6-20); Calcium 8.9 mg/dL (8.5-10.5); Carbon Dioxide 29 mmol/L (22-29); Chloride 103 mmol/L (98-107); Globulin 2.4 g/dL (1.3-4.6); Glomerular Filtration Rate 63.6 mL/min (90-130); Glucose 78 mg/dL (65-115); Osmolality Calculated 288 mOsm/kg (285-295); Potassium 4.3 mmol/L (3.5-5.1); Sodium 139 mmol/L (136-145); Thyroid Stimulating Hormone 2.11 uIU/mL (0.27-4.20); Total Bilirubin 0.4 mg/dL (0.15-1.2); Total Protein 6.7 g/dL (6.6-8.7); Vitamin B12 492 pg/mL (232-1245)
[2022-12-20 14:05] LABS: Lactate Dehydrogenase 300 U/L (135-225)
== END 2022-12-30 23:59 | disposition home or self-care (01) ==
PROVIDERS: PCP Internal Medicine; Visit Provider Internal Medicine Medical Oncology
DX: D47.3 Essential (hemorrhagic) thrombocythemia (principal); R53.83 Other fatigue
CPT/HCPCS: 36415; 80053; 82607; 83615; 84443; 85025

== ENCOUNTER 2024-02-20 17:58 | Emergency (ER) | payer BC, SELFPAY ==
[2024-02-20 18:13] VITALS: BP 135/87; PULSE 54; RESP 20; TEMP 36.9; O2SAT 97; BMI 30.9
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
[2024-02-20 19:15] VITALS: BP 120/76; PULSE 56; RESP 16; O2SAT 100
[2024-02-20 19:31] LABS: Alanine Aminotransferase 31 U/L (0-41); Albumin Level 4.4 g/dL (3.5-5.2); Alkaline Phosphatase 65 U/L (40-130); Anion Gap 12.6 (5-19); Aspartate Amino Transferase 18 U/L (0-40); Blood Urea Nitrogen 17 mg/dL (6-20); Calcium 9.1 mg/dL (8.5-10.5); Carbon Dioxide 27 mmol/L (22-29); Chloride 103 mmol/L (98-107); Creatinine Clr Calc Pharmacy 86.0527; Globulin 2.5 g/dL (1.3-4.6); Glomerular Filtration Rate 63.3 mL/min (90-130); Glucose 94 mg/dL (65-115); Osmolality Calculated 287 mOsm/kg (285-295); Potassium 4.6 mmol/L (3.5-5.1); Sodium 138 mmol/L (136-145); Total Bilirubin 0.4 mg/dL (0.15-1.2); Total Protein 6.9 g/dL (6.6-8.7)
[2024-02-20 19:33] LABS: Basophils # 0.1 10^3/uL (0.0-0.1); Basophils % 1.4 %; Eosinophils # 0.2 10^3/uL (0.0-0.8); Eosinophils % 2.9 %; Hematocrit 38.9 % (37-53); Lymphocytes # 2.2 10^3/uL (0.8-4.8); Lymphocytes % 26.4 %; Mean Corpuscular HGB Conc 32.6 g/dL (30-55); Mean Corpuscular Hemoglobin 30.5 pg (27-33); Mean Corpuscular Volume 93.3 fl (82-101); Mean Platelet Volume 10.2 fL (7.4-10.4); Monocytes # 0.6 10^3/uL (0.2-0.9); Monocytes % 6.9 %; Neutrophils # 5.07 10^3/uL (1.8-7.7); Neutrophils % 61.1 %; Nucleated Red Blood Cells % 0 %; Platelet Count 622 10^3/cmm (157-399); Red Blood Count 4.17 10^6/uL (3.85-5.65); Red Cell Distribution Width 16.2 % (12.1-15.1)
[2024-02-20 19:53] VITALS: BP 121/74; PULSE 61; RESP 16; TEMP 36.9; O2SAT 100
== END 2024-02-20 19:55 | disposition home or self-care (01) ==
PROVIDERS: Emergency Provider Nurse Practitioner Family; PCP Internal Medicine
DX: S06.0XAA Concussion with loss of consciousness status unknown, initial encounter (principal); S16.1XXA Strain of muscle, fascia and tendon at neck level, initial encounter; R16.2 Hepatomegaly with splenomegaly, not elsewhere classified; Z79.82 Long term (current) use of aspirin; F17.220 Nicotine dependence, chewing tobacco, uncomplicated; V89.2XXA Person injured in unspecified motor-vehicle accident, traffic, initial encounter
CPT/HCPCS: 36415; 70450; 71250; 72125; 73610; 74176; 80053; 85025; 99284